=== PATIENT | female | born 2000 | race Caucasian/White ===

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

== ENCOUNTER 2021-09-17 02:39 | Emergency (ER) | payer BC, MEDICAID ==
[2021-09-17 02:51] VITALS: BP 138/85; PULSE 96
== END 2021-09-17 04:23 | disposition home or self-care (01) ==
LOC: JD.ED 02:39
DX: R00.2 Palpitations (principal); Z72.0 Tobacco use
CPT/HCPCS: 36415; 80048; 82947; 85014; 85018; 93005; 93010; 99284; 99285-25